=== PATIENT | female | born 1950 | race Asian ===

== ENCOUNTER 2024-04-21 20:22 | Inpatient (IN) | payer MEDICARE, OTHER ==
[~2024-04-21] VITALS: Ht 167.6 cm; Wt 68.0 kg
[~2024-04-21 20:22] MED LIST: CEPH500T PO; DONE5TAB34 PO; IBUP-1953 PO
[2024-04-21 22:03] LABS: BASOPHILS # (AUTO) 0.1 K/uL (0.0-0.2); BASOPHILS % (AUTO) 0.8 % (0.0-2.0); EOSINOPHILS # (AUTO) 0.2 K/uL (0.0-0.7); EOSINOPHILS % (AUTO) 2.1 % (0.0-6.0); HEMATOCRIT 36 % (33-45); LYMPHOCYTES % (AUTO) 25.8 % (20.0-44.0); MEAN CORPUSCULAR HEMOGLOBIN 30 PG (26.0-33.0); MEAN CORPUSCULAR HGB CONC 33 g/dl (31.0-36.0); MEAN CORPUSCULAR VOLUME 91 fL (82-100); MONOCYTES # (AUTO) 1.6 K/uL (0.1-1.30); MONOCYTES % (AUTO) 13.8 % (2.0-12.0); NEUTROPHILS # (AUTO) 6.7 K/uL (1.8-8.9); NEUTROPHILS % (AUTO) 57.5 % (43.0-81.0); PLATELET COUNT (AUTO) 362 K/uL (150-450); RED BLOOD CELL COUNT(AUTO) 3.96 MIL/uL (4.0-5.2); RED CELL DISTRIBUTION WIDTH 13.9 % (11.5-15.0); WHITE BLOOD COUNT (AUTO) 11.7 K/uL (4.3-11.0)
[2024-04-21] MEDS: IV NS 0.9% 500 ML BAG IV ONE (22:05)
[2024-04-21] MEDS ORDERED: ONDANSETRON HCL/PF 4 MG/2 ML VIAL ONE (22:06)
[2024-04-21] MEDS: ONDANSETRON HCL/PF 4 MG/2 ML VIAL IVP ONE (22:09)
[2024-04-21 22:12] LABS: CALCIUM, SERUM 8.6 mg/dL (8.5-10.1); CREATININE 1.2 mg/dL (0.6-1.3); POTASSIUM 4.6 mmol/L (3.5-5.1)
[2024-04-21 22:18] LABS: ALBUMIN 2.8 g/dL (3.4-5.0); BILIRUBIN,DIRECT 0.1 mg/dL (0.0-0.2); BILIRUBIN,TOTAL 0.3 mg/dL (0.2-1.0); TOTAL PROTEIN, SERUM 7.3 g/dL (6.4-8.2)
[2024-04-22] LABS: APPEARANCE,URINE CLEAR (CLEAR); COLOR,URINE YELLOW (YELLOW)
[2024-04-22 00:01] LABS: BILIRUBIN,URINE NEGATIVE (NEGATIVE); KETONES,URINE TRACE mg/dL (NEGATIVE); LEUKOCYTE ESTERASE ,URINE NEGATIVE (NEGATIVE); NITRITE, URINE NEGATIVE (NEGATIVE); PROTEIN,URINE NEGATIVE (NEGATIVE); UGLUCOSE NEGATIVE (NEGATIVE)
[2024-04-22 00:15] LABS: BACTERIA,URINE Few /HPF (None Seen); BLOOD, URINE 1+ Ery/uL (NEGATIVE); SQUAMOUS EPITHELIAL CELL,UR Moderate /HPF (None Seen)
[2024-04-22 00:16] LABS: ADD URINE CULTURE NO
[2024-04-22 00:18] LABS: PLATELET ESTIMATE ADEQUATE
[2024-04-22 00:24] LABS: LYMPHOCYTES % (MANUAL) 32 % (16-48); NEUTROPHILS % (MANUAL) 60 (42-76); REACTIVE LYMPHOCYTES 1 % (0-0)
[2024-04-22 00:25] LABS: EOSINOPHILS % (MANUAL) 1 % (0-4); MONOCYTES % (MANUAL) 6 % (0-11.0)
[2024-04-22] MEDS ORDERED: ONDANSETRON HCL/PF 4 MG/2 ML VIAL IVP PRN (04:30)
[2024-04-22] MEDS ORDERED: MAGNESIUM HYDROXIDE 30 ML UDC PO PRN (04:30)
[2024-04-22] MEDS ORDERED: Z GUARD REMEDY 4 OZ OINT TP PRN (04:30)
[2024-04-22] MEDS ORDERED: ACETAMINOPHEN 325 MG TABLET PO PRN (04:30)
[2024-04-22] MEDS ORDERED: DEXTROSE 50%-WATER 50 ML DISP.SYRIN IV PRN (04:30)
[2024-04-22] MEDS ORDERED: PANTOPRAZOLE 40 MG TABLET.DR PO ONE (07:34)
[2024-04-22] MEDS: PANTOPRAZOLE 40 MG TABLET.DR PO SCH (07:39)
[2024-04-22] MEDS ORDERED: ATOR10TA PO (08:17)
[2024-04-22] MEDS ORDERED: METF-440 PO (08:17)
[2024-04-22] MEDS ORDERED: MEMA5TAB PO (08:17)
[2024-04-22] MEDS ORDERED: MAG-55 PO (08:17)
[2024-04-22] MEDS ORDERED: ACET-73 PO (08:17)
[2024-04-22] MEDS ORDERED: DIVA250T4 PO (08:17)
[2024-04-22] MEDS ORDERED: MAGN400O6 PO (08:17)
[2024-04-22] MEDS ORDERED: ACET325T53 PO (08:17)
[2024-04-22] MEDS: BLOOD SUGAR DIAGNOSTIC 1 EACH STRIP IN SCH (08:22)
[2024-04-22 18:04] VITALS: BP 123/74; TEMP 98.2
[2024-04-22] MEDS: IV NS 0.9% 1,000 ML IV PRN (19:43)
[2024-04-22 20:00] VITALS: BP 107/67; TEMP 97.7; O2SAT 97
[2024-04-22] MEDS: INSULIN REGULAR, HUMAN 100 UNIT/ML 3 ML VIAL SQ PRN (21:38)
[2024-04-23 04:00] VITALS: BP 126/89; TEMP 97.8; O2SAT 99
[2024-04-23 07:43] LABS: BASOPHILS # (AUTO) 0.1 K/uL (0.0-0.2); BASOPHILS % (AUTO) 0.6 % (0.0-2.0); EOSINOPHILS # (AUTO) 0.4 K/uL (0.0-0.7); EOSINOPHILS % (AUTO) 4.3 % (0.0-6.0); HEMATOCRIT 35 % (33-45); HEMOGLOBIN 11.7 g/dL (11.5-14.8); LYMPHOCYTES # (AUTO) 1.8 K/uL (0.8-4.8); LYMPHOCYTES % (AUTO) 21.9 % (20.0-44.0); MEAN CORPUSCULAR HEMOGLOBIN 31 PG (26.0-33.0); MEAN CORPUSCULAR HGB CONC 34 g/dl (31.0-36.0); MEAN CORPUSCULAR VOLUME 91 fL (82-100); MONOCYTES # (AUTO) 1.4 K/uL (0.1-1.30); MONOCYTES % (AUTO) 16.6 % (2.0-12.0); NEUTROPHILS # (AUTO) 4.7 K/uL (1.8-8.9); NEUTROPHILS % (AUTO) 56.6 % (43.0-81.0); PLATELET COUNT (AUTO) 392 K/uL (150-450); RED BLOOD CELL COUNT(AUTO) 3.81 MIL/uL (4.0-5.2); WHITE BLOOD COUNT (AUTO) 8.4 K/uL (4.3-11.0)
[2024-04-23 08:00] VITALS: BP 116/74; TEMP 97.5; O2SAT 94
[2024-04-23 08:11] LABS: THYROID STIMULATING HORMONE 1.38 uIU/mL (0.358-3.74)
[2024-04-23 08:25] LABS: CALCIUM, SERUM 8.4 mg/dL (8.5-10.1); CREATININE 0.9 mg/dL (0.6-1.3); MAGNESIUM 2.5 mg/dL (1.8-2.4); PHOSPHORUS 3.5 mg/dL (2.5-4.9); POTASSIUM 4.3 mmol/L (3.5-5.1)
[2024-04-23] MEDS: DIVALPROEX SODIUM 250 MG TABLET.DR PO SCH (10:03)
[2024-04-23] MEDS: METFORMIN 500 MG TABLET PO SCH (10:03)
[2024-04-23 10:54] LABS: BAND % (MANUAL) 2 % (0.0-5.0); EOSINOPHILS % (MANUAL) 3 % (0-4); LYMPHOCYTES % (MANUAL) 31 % (16-48); MONOCYTES % (MANUAL) 4 % (0-11.0); NEUTROPHILS % (MANUAL) 60 (42-76); PLATELET ESTIMATE ADEQUATE
[2024-04-23 10:56] LABS: STOMATOCYTES 1+
[2024-04-23] MEDS: risperiDONE 0.25 MG TABLET PO SCH (11:00)
[2024-04-23] MEDS: CEPHALEXIN MONOHYDRATE 250 MG/5 ML BOTTLE PO SCH (12:45)
[2024-04-23 16:00] VITALS: BP 121/74; TEMP 98.2; O2SAT 94
[2024-04-23] MEDS ORDERED: CEPH250C PO (16:20)
[2024-04-23] MEDS ORDERED: ATORVASTATIN 10 MG TABLET PO SCH (22:00)
[2024-04-23] MEDS ORDERED: DONEPEZIL 5 MG TABLET PO SCH (22:00)
[2024-04-23] MEDS ORDERED: MEMANTINE HCL 5 MG TABLET PO SCH (22:00)
== END 2024-04-23 19:47 | DRG 640 ==
LOC: ER 20:24 → MEDSG1 04-22 12:56
PROVIDERS: ADMIT Nurse Practitioner Acute Care; ATTEND Nurse Practitioner Acute Care
DX: E86.0 Dehydration (principal); G93.41 Metabolic encephalopathy; N39.0 Urinary tract infection, site not specified; E44.0 Moderate protein-calorie malnutrition; F02.83 Dementia in other diseases classified elsewhere, unspecified severity, with mood disturbance; R62.7 Adult failure to thrive; G30.9 Alzheimer's disease, unspecified; I10 Essential (primary) hypertension; E11.9 Type 2 diabetes mellitus without complications; Z20.822 Contact with and (suspected) exposure to COVID-19; E78.5 Hyperlipidemia, unspecified; E87.1 Hypo-osmolality and hyponatremia; E88.09 Other disorders of plasma-protein metabolism, not elsewhere classified; Z88.0 Allergy status to penicillin; F32.9 Major depressive disorder, single episode, unspecified; Z68.24 Body mass index [BMI] 24.0-24.9, adult; F29 Unspecified psychosis not due to a substance or known physiological condition; F39 Unspecified mood [affective] disorder; B96.89 Other specified bacterial agents as the cause of diseases classified elsewhere; Z79.84 Long term (current) use of oral hypoglycemic drugs
CPT/HCPCS: 36415; 70450-TC; 71045-TC; 80048-TC; 80076-TC; 81001; 82140-TC; 82607-TC; 82962-TC; 83690-TC; 83735-TC; 83880; 84100-TC; 84443-TC; 84484-TC; 85025-TC; 97110-TC; 97116-TC; 97530-TC; A4223; G0378; J1815; J2405; J7030